=== PATIENT | male | born 1955 | race Caucasian/White ===

== ENCOUNTER 2016-08-18 09:03 | Outpatient (CLI) | payer OTHER ==
[~2016-08-18 09:03] MED LIST: COUMADIN2.5 MG PO; DOXAZOSIN MESYLA2 MG PO; FLOMAX0.4 MG PO; LEVAQUIN750 MG PO; LOSARTAN POTASS50 MG PO; LOVENOX80 MG/0.8 SC; METFORMIN HCL500 MG PO; NIFEDIPINE ER30 MG PO; PHENDIMETRAZINE35 MG PO; PROAIR HFA8.5 GM IH; SPIRIVA RESPIMAT4 GM IH; SYMBICORT60 INHALAT IH; TAB-A-VITE1 EACH PO; TAMSULOSIN HCL0.4 MG PO; TRAMADOL HCL50 MG PO; TYLENOL WITH C1 EACH PO; WARFARIN SODIU2.5 MG PO; WARFARIN SODIUM5 MG PO
== END 2016-08-19 11:59 | disposition home or self-care (01) ==
LOC: NUC 09:03
DX: I26.99 Other pulmonary embolism without acute cor pulmonale (principal)
CPT/HCPCS: 78452; 78999; 93017; A9500; J2785

== ENCOUNTER 2017-03-21 10:18 | Inpatient (IN) | payer OTHER ==
[~2017-03-21] VITALS: Ht 175.3 cm; Wt 167.0 kg
[~2017-03-21 10:18] MED LIST changes: +LOSARTAN POTAS100 MG PO; -LOSARTAN POTASS50 MG PO; +METFORMIN HCL500 M1 PO; -METFORMIN HCL500 MG PO; +SYMBICORT60 INHALA1 IH; -SYMBICORT60 INHALAT IH
[2017-03-21] MEDS ORDERED: VITAMIN D2000 UNI1 PO (11:00)
[2017-03-21] MEDS ORDERED: TRAMADOL HCL50 MG PO (11:01)
[2017-03-21] MEDS ORDERED: LASIX20 MG PO (11:01)
[2017-03-21 11:39] LABS: HEMATOCRIT 39.5 % (38.0-50.0); MCH 31.7 PG (29.0-34.0); MCHC 33.7 G/DL (30.0-36.0); MCV 94.3 FL (86-99); MEAN PLAT.VOLUME 10.4 uM^3 (9.0-12.4); PLATELET COUNT 180 K/uL (156-360); RBC DIS.WIDTH-CV 13.2 % (11.8-14.6); RED BLOOD COUNT 4.19 M/uL (4.00-5.50); WHITE BLOOD COUNT 18.6 K/uL (4.1-10.2)
[2017-03-21 11:47] LABS: INTER. NORMALIZED RATIO 2.5
[2017-03-21 11:49] LABS: CHLORIDE 102 mEq/L (99-109); POTASSIUM 4.1 mEq/L (3.7-5.4); SODIUM 139 mEq/L (136-147)
[2017-03-21 11:52] LABS: GLUCOSE 113 mg/dL (70-99)
[2017-03-21 11:53] LABS: ANION GAP 8 MEQ/L (2-14)
[2017-03-21 11:54] LABS: TOTAL BILIRUBIN 1.4 mg/dL (0.0-1.0)
[2017-03-21 11:55] LABS: ALKALINE PHOSPHATASE 72 IU/L (3-129); GFR ESTIMATE (CALCULATED) > 59 mL/min/
[2017-03-21 11:56] LABS: UREA NITROGEN (BUN) 22 mg/dL (9-23)
[2017-03-21 12:01] LABS: TROP-I INTERPRETATION NEGATIVE; TROPONIN-I < 0.01 ng/mL (0.0-0.30)
[2017-03-21 12:13] LABS: PTT 37.7 SEC (25-37)
[2017-03-21 13:16] LABS: ADD MIUA? YES; BILIRUBIN NEGATIVE; BLOOD MODERATE; COLOR YELLOW ((YELLOW)); GLUCOSE (STRIP) NEGATIVE; KETONES NEGATIVE; LEUKOCYTES LARGE; NITRITE POSITIVE; PROTEIN (STRIP) 100; SPECIFIC GRAVITY 1.021 (1.000-1.030); UROBILINOGEN 0.2 MG/DL (0.2-1.0)
[2017-03-21 13:30] LABS: BACTERIA RARE /HPF; EPITHELIAL CELLS RARE /HPF; MUCUS NONE SEEN /LPF; UCUL ADDED? YES; WHITE BLOOD CELLS TNTC /HPF (0-5)
[2017-03-21] MEDS ORDERED: WARFARIN SODIUM5 MG PO (15:04)
[2017-03-21 17:19] VITALS: BP 133/64
[2017-03-21 19:41] VITALS: BP 120/66
[2017-03-21 23:45] VITALS: BP 133/61
[2017-03-22] VITALS (7 sets, daily range): BP systolic 121–172; BP diastolic 52–73
[2017-03-22 06:29] LABS: INTER. NORMALIZED RATIO 2.7; PROTHROMBIN TIME 30.3 SEC (10.2-12.9)
[2017-03-23] VITALS (7 sets, daily range): BP systolic 115–197; BP diastolic 53–66
[2017-03-23 07:08] LABS: INTER. NORMALIZED RATIO 2.2; PROTHROMBIN TIME 24.4 SEC (10.2-12.9)
[2017-03-23 08:35] LABS: HEMATOCRIT 34.8 % (38.0-50.0); MCH 30.9 PG (29.0-34.0); MCHC 31.9 G/DL (30.0-36.0); MCV 96.9 FL (86-99); MEAN PLAT.VOLUME 10.7 uM^3 (9.0-12.4); PLATELET COUNT 138 K/uL (156-360); RBC DIS.WIDTH-CV 13.4 % (11.8-14.6); RBC DIS.WIDTH-SD 48.6 % (39-53); RED BLOOD COUNT 3.59 M/uL (4.00-5.50); WHITE BLOOD COUNT 8.4 K/uL (4.1-10.2)
[2017-03-23 08:37] LABS: ANION GAP 7 MEQ/L (2-14); CHLORIDE 101 MEQ/L (99-109); POTASSIUM 4.3 MEQ/L (3.7-5.4); SAMPLE HEMOLYSIS CHECK 0; SAMPLE ICTERIC CHECK 0; SAMPLE LIPEMIA CHECK 0; SODIUM 137 MEQ/L (136-147); TOTAL BILIRUBIN 0.6 MG/DL (0.0-1.0)
[2017-03-23 08:42] LABS: ALKALINE PHOSPHATASE 62 IU/L (3-129); GFR ESTIMATE (CALCULATED) > 59 mL/min/; GLUCOSE 108 mg/dL (70-99); UREA NITROGEN (BUN) 19 mg/dL (9-23)
[2017-03-24] VITALS (8 sets, daily range): BP systolic 126–173; BP diastolic 63–93
[2017-03-24 07:24] LABS: INTER. NORMALIZED RATIO 2.2; PROTHROMBIN TIME 25.4 SEC (10.2-12.9)
[2017-03-24 08:48] LABS: HEMATOCRIT 34.9 % (38.0-50.0); MCH 31.5 PG (29.0-34.0); MCHC 32.4 G/DL (30.0-36.0); MCV 97.2 FL (86-99); MEAN PLAT.VOLUME 10.8 uM^3 (9.0-12.4); PLATELET COUNT 163 K/uL (156-360); RBC DIS.WIDTH-CV 13.2 % (11.8-14.6); RBC DIS.WIDTH-SD 48.1 % (39-53); RED BLOOD COUNT 3.59 M/uL (4.00-5.50); WHITE BLOOD COUNT 6.7 K/uL (4.1-10.2)
[2017-03-24 09:03] LABS: ANION GAP 8 MEQ/L (2-14); CHLORIDE 105 MEQ/L (99-109); GFR ESTIMATE (CALCULATED) > 59 mL/min/; GLUCOSE 116 mg/dL (70-99); POTASSIUM 4.5 MEQ/L (3.7-5.4); SAMPLE HEMOLYSIS CHECK 0; SAMPLE ICTERIC CHECK 0; SAMPLE LIPEMIA CHECK 0; SODIUM 139 MEQ/L (136-147); UREA NITROGEN (BUN) 14 mg/dL (9-23)
[2017-03-24 22:44] LABS: METH RESISTANT S AUREUS PCR NEGATIVE (NEGATIVE)
[2017-03-24 22:45] LABS: PROBE CHECK PASS; SPECIMEN PROCESSING CONTROL PASS
[2017-03-25 03:56] VITALS: BP 122/59
[2017-03-25 06:50] LABS: HEMATOCRIT 35.2 % (38.0-50.0); MCH 31.7 PG (29.0-34.0); MCV 96.2 FL (86-99); MEAN PLAT.VOLUME 10.3 uM^3 (9.0-12.4); PLATELET COUNT 158 K/uL (156-360); RBC DIS.WIDTH-CV 13.3 % (11.8-14.6); RBC DIS.WIDTH-SD 47.9 % (39-53); RED BLOOD COUNT 3.66 M/uL (4.00-5.50); WHITE BLOOD COUNT 7.5 K/uL (4.1-10.2)
[2017-03-25 06:56] LABS: INTER. NORMALIZED RATIO 2.4; PROTHROMBIN TIME 27.3 SEC (10.2-12.9)
[2017-03-25 07:13] LABS: ANION GAP 6 MEQ/L (2-14); CHLORIDE 99 MEQ/L (99-109); GFR ESTIMATE (CALCULATED) > 59 mL/min/; GLUCOSE 108 mg/dL (70-99); POTASSIUM 4.1 MEQ/L (3.7-5.4); SAMPLE HEMOLYSIS CHECK 0; SAMPLE ICTERIC CHECK 0; SAMPLE LIPEMIA CHECK 0; SODIUM 139 MEQ/L (136-147); UREA NITROGEN (BUN) 12 mg/dL (9-23)
[2017-03-25 07:51] LABS: INTERNAL CONTROL VALID? YES
[2017-03-25 09:21] VITALS: BP 147/65
[2017-03-25 13:00] VITALS: BP 137/70
[2017-03-25 16:29] VITALS: BP 139/65
[2017-03-25 20:07] VITALS: BP 141/63
[2017-03-25 23:56] VITALS: BP 162/70
[2017-03-26 03:44] VITALS: BP 137/60
[2017-03-26 06:02] LABS: HEMATOCRIT 33.4 % (38.0-50.0); MCH 32.2 PG (29.0-34.0); MCHC 34.1 G/DL (30.0-36.0); MCV 94.4 FL (86-99); MEAN PLAT.VOLUME 10.3 uM^3 (9.0-12.4); PLATELET COUNT 186 K/uL (156-360); RBC DIS.WIDTH-CV 13.2 % (11.8-14.6); RBC DIS.WIDTH-SD 45.9 % (39-53); RED BLOOD COUNT 3.54 M/uL (4.00-5.50); WHITE BLOOD COUNT 7.6 K/uL (4.1-10.2)
[2017-03-26 06:27] LABS: ANION GAP 8 MEQ/L (2-14); CHLORIDE 102 MEQ/L (99-109); GFR ESTIMATE (CALCULATED) > 59 mL/min/; GLUCOSE 108 mg/dL (70-99); POTASSIUM 4.3 MEQ/L (3.7-5.4); SAMPLE HEMOLYSIS CHECK 0; SAMPLE ICTERIC CHECK 0; SAMPLE LIPEMIA CHECK 0; SODIUM 140 MEQ/L (136-147); UREA NITROGEN (BUN) 16 mg/dL (9-23)
[2017-03-26 06:36] LABS: INTER. NORMALIZED RATIO 2.3; PROTHROMBIN TIME 26.4 SEC (10.2-12.9)
[2017-03-26 07:32] VITALS: BP 139/66
[2017-03-26 11:04] VITALS: BP 148/65
[2017-03-26 15:22] VITALS: BP 136/55
[2017-03-26 23:30] VITALS: BP 142/63
[2017-03-27 06:15] LABS: INTER. NORMALIZED RATIO 2.4; PROTHROMBIN TIME 27.9 SEC (10.2-12.9)
[2017-03-27 07:23] VITALS: BP 185/83
[2017-03-27 16:28] VITALS: BP 147/71
[2017-03-27 23:40] VITALS: BP 137/62
[2017-03-28 06:56] LABS: INTER. NORMALIZED RATIO 2.6; PROTHROMBIN TIME 29.2 SEC (10.2-12.9)
[2017-03-28 08:04] VITALS: BP 142/62
[2017-03-28 14:00] VITALS: BP 149/81
[2017-03-28 23:46] VITALS: BP 133/60
[2017-03-29 06:20] LABS: INTER. NORMALIZED RATIO 2.5; PROTHROMBIN TIME 29.1 SEC (10.2-12.9)
[2017-03-29 07:57] VITALS: BP 172/84
[2017-03-29 08:04] LABS: ANION GAP 8 MEQ/L (2-14); CHLORIDE 101 MEQ/L (99-109); POTASSIUM 4.7 MEQ/L (3.7-5.4); SAMPLE HEMOLYSIS CHECK 0; SAMPLE ICTERIC CHECK 0; SAMPLE LIPEMIA CHECK 0; SODIUM 139 MEQ/L (136-147)
[2017-03-29 08:11] LABS: GFR ESTIMATE (CALCULATED) 55 mL/min/; GLUCOSE 98 mg/dL (70-99); UREA NITROGEN (BUN) 18 mg/dL (9-23)
[2017-03-29 08:13] LABS: HEMATOCRIT 35.7 % (38.0-50.0); MCH 31.5 PG (29.0-34.0); MCHC 33.3 G/DL (30.0-36.0); MCV 94.4 FL (86-99); MEAN PLAT.VOLUME 9.8 uM^3 (9.0-12.4); PLATELET COUNT 266 K/uL (156-360); RBC DIS.WIDTH-CV 13.2 % (11.8-14.6); RBC DIS.WIDTH-SD 46.3 % (39-53); RED BLOOD COUNT 3.78 M/uL (4.00-5.50); WHITE BLOOD COUNT 7.6 K/uL (4.1-10.2)
[2017-03-29] MEDS ORDERED: LEVAQUIN500 MG PO (09:13)
== END 2017-03-29 14:27 | disposition home or self-care (01) | DRG 871 ==
LOC: EME 10:18 → EDOF 13:58 → 5SOUTH 13:58 → ENRESERV 14:05 → 5SOUTH 16:56
PROVIDERS: Emergency Medicine; Internal Medicine; Nurse Practitioner Adult Health; Physician Assistant Medical
PROC: 5A09357 Assistance with Respiratory Ventilation, Less than 24 Consecutive Hours, Continuous Positive Airway Pressure (ICD-10-PCS; principal; 2017-03-29)
DX: A41.9 Sepsis, unspecified organism (principal); N39.0 Urinary tract infection, site not specified; B96.20 Unspecified Escherichia coli [E. coli] as the cause of diseases classified elsewhere; N41.9 Inflammatory disease of prostate, unspecified; J96.00 Acute respiratory failure, unspecified whether with hypoxia or hypercapnia; J44.0 Chronic obstructive pulmonary disease with (acute) lower respiratory infection; J18.0 Bronchopneumonia, unspecified organism; Y95 Nosocomial condition; I11.0 Hypertensive heart disease with heart failure; I50.9 Heart failure, unspecified; R31.9 Hematuria, unspecified; E66.9 Obesity, unspecified; N40.1 Benign prostatic hyperplasia with lower urinary tract symptoms; R39.11 Hesitancy of micturition; E11.9 Type 2 diabetes mellitus without complications; G47.33 Obstructive sleep apnea (adult) (pediatric); Z68.43 Body mass index [BMI] 50.0-59.9, adult; Z79.01 Long term (current) use of anticoagulants; Z79.84 Long term (current) use of oral hypoglycemic drugs; Z85.118 Personal history of other malignant neoplasm of bronchus and lung; Z85.528 Personal history of other malignant neoplasm of kidney; Z86.711 Personal history of pulmonary embolism; Z87.891 Personal history of nicotine dependence; Z90.2 Acquired absence of lung [part of]; Z88.0 Allergy status to penicillin; Z90.5 Acquired absence of kidney
CPT/HCPCS: 71010; 71020; 71250; 80048; 80053; 81003; 83605; 83880; 84484; 85027; 85610; 85730; 87040; 87070; 87077; 87086; 87186; 87205; 87449; 87641; 93005; 93306; 93971; 94640; 94640 76; 94799; 99202; 99281; 99285; J0692; J0744; J1940; J1956; J2020; J2060; J2405; J3370; J7030; J7050